=== PATIENT | male | born 1965 | race Caucasian/White ===

== ENCOUNTER → 2017-08-02 | Outpatient (CLI) | payer OTHER | LOC: FIMAGING 10:08 | PROVIDERS: ATTEND Internal Medicine | DX: M79.661 Pain in right lower leg (principal); M79.662 Pain in left lower leg ==

== ENCOUNTER → 2018-10-01 | Outpatient (CLI) | payer OTHER | LOC: BMCIMAGING 12:29 | PROVIDERS: ATTEND Family Medicine | DX: S62.336A Displaced fracture of neck of fifth metacarpal bone, right hand, initial encounter for closed fracture (principal); W19.XXXA Unspecified fall, initial encounter ==